=== PATIENT | female | born 1935 | race African-American/Black ===

== ENCOUNTER → 2016-06-01 | Outpatient (CLI) | payer OTHER, BC ==
[~2016-06-01] MED LIST: ACCUNEB SO1.25 MG/1 INH; ACETAMINOPHEN325 M1 PO; CEFTIN 250 MG250 MG PO; CIPRO250 M1 PO; DETROL LA4 MG PO; FERRETTS I40 MG/15 M PO; HYDROCODON-ACE1 EAC7 PO; HYDROCODON-ACE1 EAC8 PO; IBUPROFEN 200200 M1 PO; IBUPROFEN 800800 M1 PO; IRON325 PO; K-SOL20 MEQ/15 PO; KEFLEX500 MG PO; KLOR-CON M2020 MEQ PO; LASIX 20 MG TAB20 MG PO; LASIX 40 MG TAB40 M1 PO; LEVAQUIN 500 M500 M4 PO; LEVAQUIN 750 M750 MG PO; LISINOPRIL-HCT1 EAC1 PO; LISINOPRIL-HCT1 EACH PO; METHOTREXATE 22.5 M1 PO; NORCO 10-325 T1 EACH PO; POTASSIUM CHLO10 ME1 PO; POTASSIUM20 PO; PREDNISONE 10 M10 MG PO; PREDNISONE 5 MG5 M1 PO; PRILOSEC20 MG PO; PRILOSEC40 MG PO; PROAIR HFA8.5 GM INH; PROZAC20 MG PO; PROZAC40 MG PO; REGLAN 10 MG TA10 MG PO; REMICADE 1100 MG/VIA; SYNTHROID100 MCG PO; TUMS PO; TYLENOL325 MG PO; VITAMIN C500 M1 PO; VITAMIN D 5050000 I1 PO
--- NOTE | ~2016-06-01 | SLE ---
[facility] [place] [address] POLYSOMNOGRAPHY STUDY Name: RIK CASSIDY Chayito Room #: [facility]#: [id number] Admission: 06/01/16 Attend Phys: Aris Garza MD Discharge: Date of : 33 Report #: [id number] THIS REPORT FOR: //name// CC: Aris Alejandre MD DATE OF SERVICE: 06/12/2016 The patient with a history of obstructive sleep apnea, dyspnea and GERD. COMMENTS: SLEEP SUMMARY: Total sleep time 320.7 minutes. Sleep efficiency 86%. Sleep latency 18 minutes, REM latency 169 minutes. SLEEP STAGE: 1-12%, 2-87%, REM-1.5 minutes. RESPIRATORY SUMMARY: Central apnea 0, mixed apnea 0, obstructive apnea 0, hypopnea 45. Apnea-hypopnea index of 8.4 events per sleep hour. All sleep was in the supine position. Periodic limb movement with arousal index 0.9 events per sleep hour. Low oxygen saturation 86%, spending approximately 1% of recording time less than 90%. A 29% of time in snoring. IMPRESSION: 1. Obstructive sleep, apnea/hypopnea, G47.33. 2. Periodic limb movement with arousal index of 0.9 events per sleep hour. 3. No significant arrhythmia noted. SUGGESTIONS: 1. In addition to specific therapy, the patient should be cautioned regarding driving or operating dangerous machinery unless fully alert. The patient be cautioned regarding the use of respiratory depressants. 2. Oral appliance or appropriate surgery may be considered with appropriate followup. 3. A CPAP titration night is recommended. 4. If signs and symptoms not improved with therapy, further evaluation recommended. Please do not hesitate to contact me if I may be of further assistance. <ELECTRONICALLY SIGNED> By: Aris Garza MD 06/16/166 26 43 Aris Garza MD /nt
== END ==
LOC: SLEEPLAB 08:00
DX: G47.33 Obstructive sleep apnea (adult) (pediatric) (principal)

== ENCOUNTER 2016-12-19 12:49 | Inpatient (IN) | payer OTHER, BC ==
[~2016-12-19] VITALS: Ht 160 cm; Wt 85.0 kg
[2016-12-19] VITALS (31 sets, daily range): BP systolic 62–162; BP diastolic 48–120
--- NOTE | ~2016-12-19 | HC ---
[facility] [place] [address] CONSULTATION Name: RIK CASSIDY Room #: 204-P ADM IN ..#: [id number] Admission: 12/19/16 Attend Phys: Jessee Hayes MD Discharge: Date of : 33 Report #: [id number] THIS REPORT FOR: //name// CC: Jessee Hoffsaw Singh HISTORY OF PRESENT ILLNESS: An 81-year-old -[place]izen [place] female with history of rheumatoid arthritis, hypertension, dementia, having problems with weakness, dizziness, dysuria. She was admitted, noted to be septic with UTI. Elevated white count 21.5. She had acute on chronic renal insufficiency with an elevated creatinine. She was hypotensive. She was noted to have COPD exacerbation, acute respiratory failure. She has vocal cord dysfunction, was seen by ENT and held off as far as any tracheostomy. She does have a prior history of rheumatoid arthritis and has had multiple joint replacements. The patient has medical complexity with significant debilitation. We are seeing her in rehabilitation medicine consultation. PAST MEDICAL HISTORY: Rheumatoid arthritis with bilateral total hips, total knees and total ankle surgeries. She has had a cholecystectomy, previous posterior cervical fusion, right total elbow replacement, and total thyroidectomy. PAST SURGICAL HISTORY: As noted above. HABITS: No history of tobacco or alcohol abuse. ALLERGIES: ACETAMINOPHEN AND STRAWBERRY. MEDICATIONS: Please see the full medication listing. SOCIAL HISTORY: Lives in an apartment alone. No steps, was premorbidly modified independent with axillary crutches walking about 30 feet. She had a part-time caregiver 4.5 hours per day 7 days a week and had a neighbor who could assist at night with family checking in as well. REVIEW OF SYSTEMS: Did not offer any current complaints of chest pain, shortness of breath, abdominal discomfort. She has some chronic problems with chronic arthritic discomfort with her rheumatoid arthritis. Notes that she is overall weak and debilitated. PHYSICAL EXAMINATION: GENERAL: An 81-year-old -Citizen [place] female in no obvious distress. VITAL SIGNS: Last recorded temperature is 98.7, pulse 82, respirations 18, blood pressure 154/89. The patient is alert. HEENT: Appeared to be benign. NEUROLOGIC: Cranial nerves are grossly intact. Facies are symmetric. She has functional range of motion of both upper extremities with strength grade [address] [address] CONSULTATION Name: RIK CASSIDY Room #: 204-[facility]#: [id number] Admission: 12/19/16 Attend Phys: Jessee Hayes MD Discharge: Date of : 33 Report #: [id number] 4-/5. DTRs are trace to 1. She has evidence of chronic arthritic changes of her hands with chronic inflammatory changes. EXTREMITIES: Examination of her lower extremities both knee incisions are well healed. There is no focal calf swelling. I would grade the strength of both lower extremities as probably a grade 3+ to 4-/5. DTRs are decreased. There is only some trace distal lower extremity edema. Tone otherwise appeared to be intact. She was mod assist with sit to stand. Gait was mod assist 2 feet without a device. Crutches are to be brought in for physical therapy. ASSESSMENT: An 81-year-old -Citizen [place] female with the following problems: 1. Medical complexity with generalized debilitation. 2. Sepsis. 3. Acute hypercapnic respiratory failure. 4. Chronic obstructive pulmonary disease exacerbation. 5. Rheumatoid arthritis. She has had multiple prior joint replacements. 6. Acute on chronic renal failure. 7. Urinary tract infection. 8. Past history of some dementia. I am uncertain regarding the severity. She was nevertheless living in the community. 9. Vocal cord dysfunction. ENT saw her and held off on any active intervention at this time. PLAN: Therapies are continuing to work with her. She certainly may be a candidate for an acute in-hospital inpatient rehabilitation stay. Crutches are to be brought in. She appears very motivated to return back to her home setting. We will be glad to follow along with you regarding rehab therapy issues. By: 1149 [id number] Micah Lee MD /
--- NOTE | ~2016-12-19 | HC ---
[facility] [place] [address] CONSULTATION Name: RIK CASSIDY Room #: 236-P [facility] IN .R.#: [id number] Admission: 12/19/16 Attend Phys: Jessee Hayes MD Discharge: Date of : 33 Report #: [id number] THIS REPORT FOR: //name// CC: Jessee Singh DO DATE OF CONSULTATION: 12/21/2016. ATTENDING PHYSICIAN: Jessee Hayes M.D. CONSULTATION REQUESTED BY: Dr. Garza. REASON FOR CONSULTATION: Bacteremia. HISTORY OF PRESENT ILLNESS: An 81-year-old white woman who is admitted with dysuria as well as weakness and illness. The urinalysis on admission abnormal. The culture revealed gram-negative rods in urine culture, Klebsiella pneumonia. The patient is remains in the ICU today, she is feeling better. She has had a set of blood gases and it was not painful. REVIEW OF SYSTEMS: Essentially noncontributory today. PAST MEDICAL HISTORY: 1. Chronic obstructive pulmonary disease. 2. Fevers. 3. Hypokalemia. 4. History of goiter. 5. Previous urinary tract infection. 6. Electrolyte imbalance. 7. Hypothyroidism. 8. Past medical history positive also for bilateral total hip replacement, and cholecystectomy. section, right total elbow replacement, bilateral cataract surgery. Full mouth dental extractions. Gastroesophageal reflux. Thyroidectomy. DRUG ALLERGIES: TYLENOL. MEDICATIONS: She is currently on treatment with Rocephin 1 g IV daily, fluoxetine, ferrous sulfate, levothyroxine, subcutaneous heparin, epinephrine inhalation as needed, Atrovent and albuterol inhalation treatments, p.r.n. glucose, glucagon, methylprednisolone 80 mg IV every 8 hours, Atrovent and albuterol inhalation treatments if needed, p.r.n. hydrocodone, p.r.n. ondansetron. SOCIAL HISTORY: See H and P old records. [facility] [address] [place] [address] CONSULTATION Name: RIK CASSIDY Room #: 236-P [facility] IN [facility].#: [id number] Admission: 12/19/16 Attend Phys: Jessee Hayes MD Discharge: Date of : 33 Report #: [id number] FAMILY HISTORY: See H and P old records. REVIEW OF SYSTEMS: As above and essentially noncontributory. PHYSICAL EXAMINATION: GENERAL: Elderly woman, not toxic looking, no distress. VITAL SIGNS: On admission, temperature 98.1 and she had a temperature elevation of 99.9 on 12/20/2016 at 8:00 p.m., pulse 74, respirations 17, pressure 127/77. HEENMT: Head normocephalic, atraumatic. Pupils reactive. Mouth edentulous. Conjunctivae pale. NECK: Supple, no thyromegaly. BREASTS: Deferred. LUNGS: Decreased breath sounds, few rhonchi. HEART: S1, S2. No gallop or murmur. ABDOMEN: Surgical scar, soft, no masses or megaly. PELVIC AND RECTAL: Deferred. EXTREMITIES: No clubbing, cyanosis. NEUROLOGIC: Grossly within normal limits. LABORATORY DATA: Sodium 140, potassium 3.7, BUN 25, creatinine 1.5. On admission, creatinine was 2.1, albumin 3.1 g/dL. NT-proBNP 953, white blood cell count 22,900, hemoglobin 10.2 g/dL and platelets 179,000. The urinalysis on admission revealed 1+ protein, 2+ blood, positive nitrite. The microscopic exam revealed pyuria, microscopic hematuria and bacteriuria. ABGs today revealed pH 7.29, pCO2 of 41, pO2 132, bicarbonate 19.6, lactate 2.38, her lactate has been coming down but here of lately has increased some again. MICROBIOLOGY DATA: The urine culture revealed Klebsiella pneumonia, both of them sensitive to cefazolin and ceftriaxone and single blood culture was positive with gram-negative rods. The identification and sensitivity of those still pending. RADIOLOGY EVALUATION: A chest x-ray obtained yesterday revealed ectasia of the aorta interstitial infiltrates have increased with more focal infiltrate on the left lower area compatible with either atelectasis or pneumonia, this is the official report. Repeat chest x-ray today remains essentially unchanged with left basilar pulmonary infiltrate, some air bronchogram and significant dilatation of the thoracic aorta. ASSESSMENT: 1. Acute pyelonephritis with bacteremia due to Klebsiella pneumonia -- type. 2. Left lower lung pulmonary infiltrate, question pneumonia. 3. Persistent and metabolic and mild lactic acidosis. 4. Mild respiratory failure. [address] [address] CONSULTATION Name: RIK CASSIDY Chayito Room #: 236-P [facility] IN M.R.#: [id number] Admission: 12/19/16 Attend Phys: Jessee Hayes MD Discharge: Date of : 33 Report #: [id number] 5. Chronic obstructive pulmonary disease. 6. Rheumatoid arthritis on Remicade -- immunosuppressed host. 7. Acute kidney injury, improving. 8. Hypertension. 9. Dementia. SUGGESTIONS: Currently, even though laboratory parameters indicate the patient has some mild metabolic and lactic acidosis. I believe she is clinically progressing quite nicely and stable continuation of treatment with Rocephin 1 gram IV daily. If clinical course fails to improve, will possibly broaden antibiotic spectrum coverage with Zosyn 3.375 grams IV every [address] Hayes and Dr. Garza, thank you very much for requesting my suggestions in the care of your patient. <ELECTRONICALLY SIGNED> By: Bhargav Sanford MD 12/21/16 1504 1149 1300 Bhargav Sanford MD /nt
--- NOTE | ~2016-12-19 | HC ---
[facility] [place] [address] CONSULTATION Name: RIK CASSIDY Room #: 204-P ADM IN .R.#: [id number] Admission: 12/19/16 Attend Phys: Jessee Hayes MD Discharge: Date of : 33 Report #: [id number] THIS REPORT FOR: //name// CC: Jessee Singh REFERRAL PHYSICIAN: Dr. Hayes. REASON FOR REFERRAL: Acute respiratory failure. HISTORY OF PRESENT ILLNESS: The patient is an 81-year-old -[place] female who presents to the emergency room with complaints of dizziness, weakness and dyspnea. Symptoms started sometime last evening. She was found to be dyspneic when she was admitted. A pulmonary consultation was requested. The patient has a history of thyroidectomy in the past. She was found to have large multinodular goiter. The patient is also known to have hoarseness in the past. 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 This was felt to be related to the large multinodular goiter. According to the family following thyroidectomy, she continued to have episodic hoarseness and dyspnea. The patient also has a long history of rheumatoid arthritis. She is followed by Dr. Cody. The patient was in her usual state of health until sometime yesterday and this morning, she was found to be dyspneic with complaints of dizziness. She was admitted for possible urinary tract infection. When she was found to be dyspneic, a pulmonary consultation was requested. At the time of evaluation, the patient is felt to have stridor with what appears to be upper airway breath sounds. She appeared to tachypneic. She is currently on BiPAP. Appears to be resting in bed. Otherwise, no recent febrile illness, chest pain or productive cough. Portable chest x-ray shows small lung volumes, otherwise clear without any obvious infiltrates. PAST MEDICAL HISTORY: As mentioned above including large multinodular goiter, status post thyroidectomy; history of bilateral vocal cord paresis; COPD, severity unknown; ; long history of rheumatoid arthritis; gastroesophageal reflux disease. PAST SURGICAL HISTORY: As mentioned above including as mentioned thyroid [facility] [address] [place] [address] CONSULTATION Name: KHANHRIK Room #: 204-P [facility] IN [facility]#: [id number] Admission: 12/19/16 Attend Phys: Jessee Hayes MD Discharge: Date of : 33 Report #: [id number] surgery, bilateral hip surgery, elbow and ankle surgeries. She had a prior bone marrow biopsy for evaluation of pancytopenia. Cholecystectomy. Posterior cervical fusion, right total elbow replacement, bilateral cataract surgery, prior LASIK surgery, total tooth extraction. ALLERGIES: ACETAMINOPHEN, reactions unspecified. She is also allergic to STRAWBERRY. MEDICATIONS FROM HOME: Reviewed. This include Prilosec, lisinopril, Diovan/hydrochlorothiazide, Prozac, K-Dur, Detrol, Namenda, iron sulfate, Reglan, vitamin D supplements, and Lasix. FAMILY HISTORY: Unknown as the patient is adopted. SOCIAL HISTORY: No prior history of tobacco or alcohol use. The patient lives at a senior citizen complex. She lives independently. She has family who lives in town. REVIEW OF SYSTEMS: Limited as patient is on BiPAP. It is otherwise, as mentioned above. PHYSICAL EXAMINATION: GENERAL: She is awake, less distressed while on BiPAP. VITAL SIGNS: Temperature is 99.7 degrees Fahrenheit, pulse is 118, blood pressure is 113/67 mmHg, saturation 98%, and respiratory rate is 20. HEENT: Normocephalic, atraumatic. NECK: Supple, without lymphadenopathy or thyromegaly. CHEST: Breath sounds are decreased bilaterally. No obvious wheezes or rales. CARDIOVASCULAR: No obvious murmurs or gallop. Pulses are 2+/4+ bilaterally. BREASTS: Deferred. ABDOMEN: Soft, nontender. No organomegaly or masses felt. GENITOURINARY AND RECTAL: Deferred. EXTREMITIES: No cyanosis, clubbing or edema. LABORATORY AND DIAGNOSTIC DATA: Chest x-ray as mentioned above is clear. Arterial blood gas revealed pH 7.05, pCO2 of 76, pO2 of 117 on 6 liters of O2. WBC is 21,500 with mild bandemia. Creatinine is 2.1, sodium 140, potassium 3.0, chloride 102, CO2 is 26, BUN is 21. IMPRESSION: 1. Acute hypercapnic hypoxic respiratory failure in this 81-year-old -[place] female with past history of bilateral vocal cord paresis. This was initially felt to be related to large multinodular goiter. She has since undergone thyroidectomy. 2. Acute respiratory distress is likely related to underlying vocal cord pathology. [address] [address] CONSULTATION Name: RIK CASSIDY Room #: 204-P [facility] IN [place].R.#: [id number] Admission: 12/19/16 Attend Phys: Jessee Hayes MD Discharge: Date of : 33 Report #: [id number] 3. History of chronic obstructive pulmonary disease, severity unknown, this may be contributing, but I do not believe this is a primary process. 4. Urinary tract infection. 5. Sepsis. 6. Long history of rheumatoid arthritis. She has been on Remicade. It is possible the patient may have vocal cord involvement due to rheumatoid arthritis. 7. Acute kidney injury/chronic kidney disease. 8. Hypertension. The patient had been hypotensive since admission. 9. Hypothyroidism. 10. Multinodular goiter, status post thyroidectomy this past year. 11. Dementia. RECOMMENDATIONS: Continue noninvasive positive pressure ventilation. We will follow up ABG. Bronchodilators along with corticosteroids. We will consult ENT. If she continues to have deterioration in oxygenation, the patient may need to be intubated. Thank you for this consultation. <ELECTRONICALLY SIGNED> By: Sergio Zavaleta MD 12/24/16 1706 1805 09 Sergio Zavaleta MD /nt
--- NOTE | ~2016-12-19 | EKG ---
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: [id number] : 1935 Requested By: Juan Sarabia Order Number: [id number] MD: Noé Freeman Measurements Intervals [place] Rate: 97 P: 27 [place]: 169 QRS: -23 QRSD: 89 T: -3 QT: 365 QTc: 464 Interpretive Statements Sinus rhythm Abnormal R-wave progression, early transition Left ventricular hypertrophy Nonspecific ST and T wave abnormality Compared to ECG 12/20/2014 09:24:39 Nonspecific change in the ST and T-wave segments Electronically Signed On 12-20-2016 8:07:37 CDT by Noé Freeman [email or web address] <ELECTRONICALLY SIGNED> By: Noé Freeman MD, [facility] 12/20/16 0807 1256 1256 Noé Freeman MD, [facility] /EPI
[2016-12-19] MEDS ORDERED: NAMENDA XR28 MG PO (13:02)
[2016-12-19 13:18] LABS: HEMATOCRIT 37.5 % (37.0-47.0); HEMOGLOBIN 12.2 gm/dL (12.0-15.0); MCH 30.5 pg (26.0-34.0); MCHC 32.5 g/dL (28.0-37.0); MCV 93.8 fL (80.0-100.0); PLATELET COUNT 197 thou/uL (150-400); RDW 15.3 % (10.5-14.5); WBC 21.5 thou/uL (4.0-11.0)
[2016-12-19 13:20] LABS: MANUAL DIFF YES
[2016-12-19 13:24] LABS: ANION GAP 12 mmol/L (7-16); BUN 21 mg/dL (7-18); CALCIUM 9.4 mg/dL (8.5-10.1); CHLORIDE 102 mmol/L (98-107); CO2 26 mmol/L (21-32); CREATININE 2.1 mg/dL (0.6-1.0); GLUCOSE 124 mg/dL (74-106); SODIUM 140 mmol/L (136-145)
[2016-12-19 13:35] LABS: TOTAL CELL COUNT 100
[2016-12-19 13:35] LABS: URINE BILIRUBIN NEGATIVE (Negative); URINE BLOOD 2+ (Negative); URINE COLOR YELLOW; URINE GLUCOSE-RANDOM* NEGATIVE (Negative); URINE KETONES NEGATIVE (Negative); URINE LEUKOCYTES-REFLEX 3+ (Negative); URINE PROTEIN (DIPSTICK) 1+ (Negative); URINE SPECIFIC GRAVITY 1.015 (1.003-1.035); URINE UROBILINOGEN 0.2 E.U./dl (0.2-1.0)
[2016-12-19 13:36] LABS: PLATELET ESTIMATE NORMAL
[2016-12-19 13:37] LABS: ALBUMIN 3.1 g/dL (3.4-5.0); ALKALINE PHOSPHATASE 64 U/L (46-116); NT-PRO BRAIN NAT PEPTIDE 953 pg/mL (<300); SGOT 16 U/L (15-37); SGPT 12 U/L (30-65); TOTAL BILIRUBIN 0.4 mg/dL (<0.1-1.0); TOTAL PROTEIN 7.4 g/dL (6.4-8.2); TROPONIN-I < 0.04 ng/mL (<0.04-0.07)
[2016-12-19 13:45] LABS: CASTS None Seen /LPF (None Seen); CRYSTALS None Seen /LPF (None Seen); SQUAMOUS 0-3 Few /LPF (0-3); URINE RBC 3-10 Few /HPF (0-2); URINE WBC-REFLEX >25 Many /HPF (0-5)
[2016-12-19 16:10] LABS: ABG SAMPLE TYPE ARTERIAL; BE(vivo) -10.6 mmol/L (-2 to +3); HCO3 20.9 mmol/L (22.0-26.0); LACTATE 3.07 mmol/L (0.5-2.0); O2(CT) 17.6 mL/dL (15.0-23.0); O2Hb 94.6 % (92.0-98.0); PO2 117.9 mmHg (80.0-100.0); sO2 96.2 % (92.0-98.0); tCO2 23.3 mmol/L (24.0-30.0)
[2016-12-19 16:11] LABS: PCO2 76.7 mmHg (35.0-45.0); STICK SITE L.RADIAL; pH 7.054 (7.360-7.450)
[2016-12-19 18:15] LABS: ABG SAMPLE TYPE ARTERIAL; BE(vivo) -7.1 mmol/L (-2 to +3); HCO3 17.3 mmol/L (22.0-26.0); LACTATE 1.78 mmol/L (0.5-2.0); O2(CT) 16.2 mL/dL (15.0-23.0); O2Hb 97.7 % (92.0-98.0); PCO2 31.7 mmHg (35.0-45.0); PO2 148.6 mmHg (80.0-100.0); STICK SITE L.RADIAL; pH 7.356 (7.360-7.450); sO2 98.9 % (92.0-98.0); tCO2 18.3 mmol/L (24.0-30.0)
[2016-12-19 20:12] LABS: ABG SAMPLE TYPE ARTERIAL; BE(vivo) -10.4 mmol/L (-2 to +3); HCO3 20.2 mmol/L (22.0-26.0); LACTATE 2.69 mmol/L (0.5-2.0); O2(CT) 17.9 mL/dL (15.0-23.0); O2Hb 97.9 % (92.0-98.0); PO2 355.1 mmHg (80.0-100.0); sO2 99.6 % (92.0-98.0); tCO2 22.4 mmol/L (24.0-30.0)
[2016-12-19 20:13] LABS: PCO2 69.7 mmHg (35.0-45.0); STICK SITE LRA; pH 7.081 (7.360-7.450)
[2016-12-19 20:14] LABS: ABG COMMENT BIPAP; Pressure Support 16 cm H20
[2016-12-20] VITALS (95 sets, daily range): BP systolic 74–132; BP diastolic 50–97
[2016-12-20 05:19] LABS: ABG SAMPLE TYPE ARTERIAL; BE(vivo) -5.9 mmol/L (-2 to +3); HCO3 19.4 mmol/L (22.0-26.0); LACTATE 1.19 mmol/L (0.5-2.0); O2(CT) 15.7 mL/dL (15.0-23.0); O2Hb 97.3 % (92.0-98.0); PCO2 37.7 mmHg (35.0-45.0); Pressure Support 16 cm H20; STICK SITE LRA; sO2 98.5 % (92.0-98.0); tCO2 20.6 mmol/L (24.0-30.0)
[2016-12-20 05:20] LABS: ABG COMMENT BIPAP16/8 10 40%
[2016-12-20 05:56] LABS: HEMATOCRIT 32.7 % (37.0-47.0); HEMOGLOBIN 10.5 gm/dL (12.0-15.0); MCH 30.7 pg (26.0-34.0); MCHC 32.2 g/dL (28.0-37.0); MCV 95.3 fL (80.0-100.0); RBC 3.43 mil/uL (4.20-5.00)
[2016-12-20 06:10] LABS: CALCIUM 8.4 mg/dL (8.5-10.1); CREATININE 1.8 mg/dL (0.6-1.0); POTASSIUM 3.6 mmol/L (3.5-5.1)
[2016-12-21] VITALS (21 sets, daily range): BP systolic 103–134; BP diastolic 72–88
[2016-12-21 04:23] LABS: ABG SAMPLE TYPE ARTERIAL; BE(vivo) -5.9 mmol/L (-2 to +3); HCO3 20.2 mmol/L (22.0-26.0); LACTATE 1.89 mmol/L (0.5-2.0); O2(CT) 15.6 mL/dL (15.0-23.0); O2Hb 97.5 % (92.0-98.0); PO2 137.4 mmHg (80.0-100.0); sO2 98.5 % (92.0-98.0); tCO2 21.4 mmol/L (24.0-30.0)
[2016-12-21 04:24] LABS: STICK SITE L.RADIAL; pH 7.299 (7.360-7.450)
[2016-12-21 06:25] LABS: HEMATOCRIT 31.1 % (37.0-47.0); HEMOGLOBIN 10.2 gm/dL (12.0-15.0); MCH 31.1 pg (26.0-34.0); MCHC 32.9 g/dL (28.0-37.0); MCV 94.6 fL (80.0-100.0); RBC 3.29 mil/uL (4.20-5.00); RDW 15.5 % (10.5-14.5); WBC 22.9 thou/uL (4.0-11.0)
[2016-12-21 06:35] LABS: CALCIUM 8.6 mg/dL (8.5-10.1); CREATININE 1.5 mg/dL (0.6-1.0); POTASSIUM 3.7 mmol/L (3.5-5.1)
[2016-12-21 11:38] LABS: ABG SAMPLE TYPE ARTERIAL; BE(vivo) -6.5 mmol/L (-2 to +3); HCO3 19.6 mmol/L (22.0-26.0); LACTATE 2.38 mmol/L (0.5-2.0); O2(CT) 15.5 mL/dL (15.0-23.0); O2Hb 97.1 % (92.0-98.0); PCO2 41.3 mmHg (35.0-45.0); PO2 132.9 mmHg (80.0-100.0); STICK SITE R.BRACHIAL; pH 7.295 (7.360-7.450); sO2 98.4 % (92.0-98.0); tCO2 20.9 mmol/L (24.0-30.0)
[2016-12-22 03:31] VITALS: BP 132/76
[2016-12-22 03:46] LABS: HEMATOCRIT 31.2 % (37.0-47.0); HEMOGLOBIN 10.2 gm/dL (12.0-15.0); MCH 30.8 pg (26.0-34.0); MCHC 32.6 g/dL (28.0-37.0); MCV 94.6 fL (80.0-100.0); RBC 3.3 mil/uL (4.20-5.00); RDW 15.5 % (10.5-14.5); WBC 16.5 thou/uL (4.0-11.0)
[2016-12-22 03:55] LABS: CALCIUM 8.6 mg/dL (8.5-10.1); CREATININE 1.5 mg/dL (0.6-1.0); POTASSIUM 3.7 mmol/L (3.5-5.1)
[2016-12-22 05:57] LABS: ABG SAMPLE TYPE ARTERIAL; BE(vivo) -3.8 mmol/L (-2 to +3); HCO3 22.6 mmol/L (22.0-26.0); LACTATE 1.74 mmol/L (0.5-2.0); O2(CT) 14.8 mL/dL (15.0-23.0); O2Hb 97.5 % (92.0-98.0); PCO2 47.4 mmHg (35.0-45.0); PO2 133.2 mmHg (80.0-100.0); sO2 98.4 % (92.0-98.0); tCO2 24.1 mmol/L (24.0-30.0)
[2016-12-22 05:58] LABS: STICK SITE R.BRACHIAL; pH 7.297 (7.360-7.450)
[2016-12-22 07:35] VITALS: BP 120/78
[2016-12-22 11:35] VITALS: BP 106/63
[2016-12-22 15:50] VITALS: BP 113/71
[2016-12-22 19:46] VITALS: BP 123/73
[2016-12-23 00:09] VITALS: BP 124/73
[2016-12-23 03:13] LABS: HEMATOCRIT 30.3 % (37.0-47.0); HEMOGLOBIN 9.8 gm/dL (12.0-15.0); MCH 30.7 pg (26.0-34.0); MCHC 32.4 g/dL (28.0-37.0); MCV 94.6 fL (80.0-100.0); RBC 3.2 mil/uL (4.20-5.00); RDW 15.2 % (10.5-14.5); WBC 11.6 thou/uL (4.0-11.0)
[2016-12-23 03:34] LABS: CALCIUM 8.8 mg/dL (8.5-10.1); CREATININE 1.5 mg/dL (0.6-1.0); POTASSIUM 3.6 mmol/L (3.5-5.1)
[2016-12-23 04:05] VITALS: BP 129/73
[2016-12-23 07:07] LABS: ABG SAMPLE TYPE ARTERIAL; BE(vivo) -4.2 mmol/L (-2 to +3); HCO3 22.1 mmol/L (22.0-26.0); LACTATE 1.82 mmol/L (0.5-2.0); O2(CT) 13.8 mL/dL (15.0-23.0); O2Hb 91.5 % (92.0-98.0); PCO2 45.6 mmHg (35.0-45.0); PO2 66.3 mmHg (80.0-100.0); STICK SITE R.BRACHIAL; pH 7.303 (7.360-7.450); sO2 91.2 % (92.0-98.0); tCO2 23.5 mmol/L (24.0-30.0)
[2016-12-23 07:25] VITALS: BP 145/87
[2016-12-23 11:30] VITALS: BP 146/82
[2016-12-23 15:30] VITALS: BP 144/76
[2016-12-23 19:12] VITALS: BP 148/95
[2016-12-24 03:51] VITALS: BP 147/95
[2016-12-24 03:57] LABS: CREATININE 1.3 mg/dL (0.6-1.0); POTASSIUM 3.5 mmol/L (3.5-5.1)
[2016-12-24 04:22] LABS: HEMATOCRIT 31.2 % (37.0-47.0); HEMOGLOBIN 10.1 gm/dL (12.0-15.0); MCH 30.9 pg (26.0-34.0); MCHC 32.5 g/dL (28.0-37.0); MCV 94.8 fL (80.0-100.0); PLATELET COUNT 155 thou/uL (150-400); RBC 3.29 mil/uL (4.20-5.00); WBC 8.7 thou/uL (4.0-11.0)
[2016-12-24 04:25] LABS: MANUAL DIFF YES
[2016-12-24 07:15] VITALS: BP 154/89
[2016-12-24 08:02] LABS: METAMYELOCYTES 3 %; NUCLEATED RBCS 1 /100WBC; TOTAL CELL COUNT 100
[2016-12-24 08:03] LABS: ABSOLUTE NEUTROPHILS 7.6 thou/uL (1.4-8.2); ANISOCYTOSIS 1+
[2016-12-24 11:10] VITALS: BP 129/69
[2016-12-24 15:20] VITALS: BP 149/92
== END 2016-12-24 17:37 | DRG 871 ==
LOC: ER 12:49 → EROBS 14:08 → ICU 14:08 → 4W 15:21 → ICU 16:49 → 2N 12-21 15:55
PROVIDERS: Family Medicine; Hospitalist; Internal Medicine Pulmonary Disease; Physician Assistant
PROC: 5A09457 Assistance with Respiratory Ventilation, 24-96 Consecutive Hours, Continuous Positive Airway Pressure (ICD-10-PCS; principal; 2016-12-19)
DX: A41.9 Sepsis, unspecified organism (principal); J96.01 Acute respiratory failure with hypoxia; J96.02 Acute respiratory failure with hypercapnia; N12 Tubulo-interstitial nephritis, not specified as acute or chronic; J44.1 Chronic obstructive pulmonary disease with (acute) exacerbation; N17.9 Acute kidney failure, unspecified; M06.9 Rheumatoid arthritis, unspecified; E89.0 Postprocedural hypothyroidism; F32.9 Major depressive disorder, single episode, unspecified; K21.9 Gastro-esophageal reflux disease without esophagitis; Z96.621 Presence of right artificial elbow joint; Z96.653 Presence of artificial knee joint, bilateral; Z96.643 Presence of artificial hip joint, bilateral; N18.9 Chronic kidney disease, unspecified; J38.02 Paralysis of vocal cords and larynx, bilateral; F03.90 Unspecified dementia, unspecified severity, without behavioral disturbance, psychotic disturbance, mood disturbance, and anxiety; D64.9 Anemia, unspecified; B96.1 Klebsiella pneumoniae [K. pneumoniae] as the cause of diseases classified elsewhere; Z90.49 Acquired absence of other specified parts of digestive tract; Z98.1 Arthrodesis status; Z98.42 Cataract extraction status, left eye; Z98.41 Cataract extraction status, right eye; Z79.899 Other long term (current) drug therapy; Z88.8 Allergy status to other drugs, medicaments and biological substances; Z91.018 Allergy to other foods; R65.20 Severe sepsis without septic shock
CPT/HCPCS: 10078; 10081

== ENCOUNTER 2016-12-24 14:10 | Inpatient (IN) | payer OTHER, BC ==
[~2016-12-24] VITALS: Ht 160 cm; Wt 81.6 kg
--- NOTE | ~2016-12-24 | H ---
[facility] [place] [address] HISTORY AND PHYSICAL Name: RIK CASSIDY Room #: 505-P ADM IN M.R.#: [id number] Admission: 12/24/16 Attend Phys: Micah Lee MD Discharge: Date of : 33 Report #: [id number] THIS REPORT FOR: //name// CC: Micah Camcarrie Annaker DATE OF SERVICE: 12/24/2016 PROGRESS NOTE/OVERALL PLAN OF CARE The patient was seen back today in followup. She was in no distress. Last recorded temperature 98.9, pulse 78, respirations 18, blood pressure 146/89. The patient is alert. She appears to have some decreased insight into her deficits. I reviewed with her the goals that would need to be achieved for her to hopefully return back to the home setting. Functionally, she is transferring with max assist, bed to wheelchair is mod assist. Once up, she did take six steps with bilateral platform attachment front-wheeled walker with min assist. In occupational therapy, lower body dressing has been dependent. Speech therapy does show moderate comprehensive deficits. ASSESSMENT: 1. Medical complexity with generalized debilitation. 2. Sepsis. 3. Acute hypercapnic respiratory failure. 4. Chronic obstructive pulmonary disease exacerbation. 5. Rheumatoid arthritis. She has had multiple prior joint replacements. 6. Acute on chronic renal failure. 7. Urinary tract infection. 8. Apparent past history of some dementia. PLAN: The overall plan of care is based on the preadmission screen, post-admission physician evaluation and information garnered from therapy assessments. 1. Estimated length of stay is probably at least 10 days to 2 weeks. 2. Medical prognosis is reasonably good. 3. Anticipated interventions includes the interdisciplinary acute inpatient rehabilitation program with PT and OT and speech working with her rehab nursing assisting regarding medication management, skin care prophylaxis, bowel and bladder issues and nursing education. We will have the interdisciplinary team working with her as well as bi consultant physicians. 4. Anticipated functional outcomes would be for her to become independent with basic transfers and walking hopefully with those axillary crutches. 5. Discharge destination would be back home where she does live with the part-time caregiver. 6. Expected therapy by discipline includes PT, OT and speech 1 [place] [address] HISTORY AND PHYSICAL Name: KHANHRIK J Room #: 505-P [facility] IN [facility].#: [id number] Admission: 12/24/16 Attend Phys: Micah Lee MD Discharge: Date of : 33 Report #: [id number] each five days a week throughout the duration of the acute inpatient rehabilitation stay. By: 1023 [id number] Micah Lee MD /
--- NOTE | ~2016-12-24 | HC ---
[facility] [place] [address] CONSULTATION Name: RIK CASSIDY Room #: 505-P [facility] IN .R.#: [id number] Admission: 12/24/16 Attend Phys: Micah Lee MD Discharge: Date of : 33 Report #: [id number] THIS REPORT FOR: //name// CC: Micah Camcarrie Singh DATE OF SERVICE: 12/28/2016 NEUROBEHAVIORAL STATUS EXAM ATTENDING PHYSICIAN: Micah Lee M.D. WEBSITE DEVELOPER: Guzman Garza, PhD CLINICAL PRESENTATION: The patient is an 81-year-old -[place]ib[place] female with a history of rheumatoid arthritis and hypertension. She was admitted for acute hospitalization with problems that include weakness, dizziness and dysuria. The patient was noted to be septic and had a urinary tract infection. Her diagnoses on admission include medical complexity with generalized debilitation, sepsis, acute hypercapnic respiratory failure, chronic obstructive pulmonary disease exacerbation, rheumatoid arthritis with multiple joint replacements, acute on chronic renal failure, urinary tract infection, past history of dementia, vocal cord dysfunction. A complete description of her medical condition, history and medication can be found in her medical record. Neuropsychological consultation was requested to provide assistance in the assessment of cognitive and emotional status and to provide recommendations and services. Prior to this most recent admission, she was living independently in her own home. She reports having assistance in functioning that is provided by her family and caregiver. Her daughter is reported to manage medication for her and the caregiver provides nutritional support. The patient indicates that she does continue to drive and manage her own medication. She is a high school graduate. 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 TECHNIQUES UTILIZED: Clinical interview, review of medical records, staff consultation and behavioral observation, mini mental status exam 2 standard version and clock drawing. EXAMINATION FINDINGS: The patient was alert and cooperative with the assessment. She accurately described events surrounding her admission. There is no evidence of aphasia. Her thoughts are logical and goal oriented. There is no evidence of thought disorder. She does not report auditory or visual hallucinations. She reports her symptoms to include difficulty with sleep and appetite. Frustration with swallowing deficits is reported. She does not report difficulty with cognitive function. [facility] [address] [place] [address] CONSULTATION Name: RIK CASSIDY Room #: 505-P [facility] IN ..#: [id number] Admission: 12/24/16 Attend Phys: Micah Lee MD Discharge: Date of : 33 Report #: [id number] Her performance on the MMSE 2 brief version was extremely low with a raw score of 12 of 16 with a T score of 30 and percentile rank of 2 which is in the borderline range. Performance on the MMSE 2 standard version was extremely low with a raw score 21 of 30, T score 28 and percentile rank of 1. The patient is 3/3 for initial registration, 4/5 for orientation to time and 5/[address]. She was 0/3 for immediate recall of 3 items after a brief time delay and distraction. Her performance on the MMSE 2 standard version reveals extremely low performance with deficits in concnetration that is reflected in problems with serial sevens. Her naming, repetition and ability to follow written command are within normal limits. The patient was able to write a sentence. She was unable to copy a simple geometric design. Severe visual spatial disorientation is noted. The patient also had difficulty with clock drawing in regard to spatial organization. She is showing impairment with sustained attention and concentration, immediate recall and visual spatial organization. Deficits in executive functioning are suggested. DIAGNOSTIC IMPRESSION: Major neurocognitive disorder (dementia), unspecified, without behavior disorder (poor insight) -- likely in the mild to moderate range. RECOMMENDATIONS: The patient will continue to require assistance in the management of finances and nutrition. She will also benefit from help with managing medication. She has decreased insight into cognitive deficits which places her at an increased safety risk. Additionally, the patient should discontinue driving. Severe deficits in visual spatial organization along with attention and concentration place her at a high safety risk for which she has decreased insight. She has very good family support in return to her home, from a cognitive perspective is likely to be satisfactory; however, increased supervision to maintain safety will be necessary. Thank you very much for allowing me to provide the consultation on this patient. <ELECTRONICALLY SIGNED> By: Guzman Garza, PhD 01/04/17 1357 [id number] Guzman Garza, PhD /nt
--- NOTE | ~2016-12-24 | H ---
[facility] [place] [address] HISTORY AND PHYSICAL Name: RIK CASSIDY Room #: 505-P [facility] IN .R.#: [id number] Admission: 12/24/16 Attend Phys: Micah Lee MD Discharge: Date of : 33 Report #: [id number] THIS REPORT FOR: //name// CC: Micah Camore Singh DATE OF SERVICE: 12/24/2016 HISTORY OF PRESENT ILLNESS: The patient is an 81-year-old -Bel[place]ian female with a history of rheumatoid arthritis, hypertension, admitted with problems of weakness, dizziness and dysuria. She was noted to be septic and had urinary tract infection. She had an elevated white count 21.5. She was noted to have pcdnz-fo-ipswzgv renal insufficiency with an elevated creatinine. She was hypotensive. She was noted to have COPD exacerbation and acute respiratory failure. She has vocal cord dysfunction and was seen by ENT and they held off as far as any tracheostomy. She does have a prior history of rheumatoid arthritis and has had multiple joint replacements. She has medical complexity with generalized debilitation. She was admitted now for acute in-hospital inpatient rehabilitation. PAST MEDICAL HISTORY: Rheumatoid arthritis with bilateral total hips, total knees and total ankle surgeries. She has had a cholecystectomy, previous posterior cervical fusion, right total elbow replacement and total thyroidectomy. PAST SURGICAL HISTORY: As noted above. HABITS: No history of tobacco or alcohol abuse. ALLERGIES: ACETAMINOPHEN AND STRAWBERRY. MEDICATIONS: Please see the full medication listing. Each of these was individually reconciled and the list includes her gyjn-mok-qkgybqq's, supplements and vitamin, etc. SOCIAL HISTORY: Lives in an apartment alone, no steps, was premorbidly modified independent with axillary crutches, walking about 30 feet. She had a part-time caregiver 4-1/2 hours per day 7 days per week and a neighbor who could assist at night with family checking in as well. REVIEW OF SYSTEMS: Did not offer any current complaints of chest pain, shortness of breath, abdominal discomfort. She has had some chronic problems with chronic arthritic discomfort with her rheumatoid arthritis. No current focal extremity pain complaints. Notes that she is overall debilitated. PHYSICAL EXAMINATION: [address] [address] HISTORY AND PHYSICAL Name: RIK CASSIDY Room #: 505-P [facility] IN [facility]#: [id number] Admission: 12/24/16 Attend Phys: Micah Lee MD Discharge: Date of : 33 Report #: [id number] GENERAL: An 81-year-old -Bel[place]ian female, in no obvious distress. VITAL SIGNS: Last recorded temperature 99.3, pulse 75, respirations 20, blood pressure 138/84. The patient is alert, pleasant. HEENT: Appeared to be benign. Cranial nerves are grossly intact. Facies are symmetric. CHEST: Sounded clear to auscultation. CARDIOVASCULAR: Sounded regular rate and rhythm. ABDOMEN: Significant obesity, bowel sounds positive, nontender. GENITOURINARY AND RECTAL: Deferred. EXTREMITIES: Upper extremities, she has chronic arthritic changes of her hands. She has functional range of motion. Strength is grade 4-/5. DTRs are trace to 1. Lower extremities, both knee incisions are well healed. There is no focal calf swelling. Strength of the lower extremities is grade 3+ to 4-/5. DTRs are decreased. Trace distal lower extremity edema. She is mod assist with sit to stand and was ambulating a short distance without a device. ASSESSMENT: An 81-year-old -[place]ian female with the following problem list: 1. Medical complexity with generalized debilitation. 2. Sepsis. 3. Acute hypercapnic respiratory failure. 4. Chronic obstructive pulmonary disease exacerbation. 5. Rheumatoid arthritis. She has had multiple prior joint replacements. 6. Acute on chronic renal failure. 7. Urinary tract infection. 8. Apparent past history of some dementia. I am uncertain regarding the severity. She was nevertheless living in the community. 9. Vocal cord dysfunction. ENT saw her and held off on any active intervention at this time. PLAN: The patient is admitted for acute in-hospital inpatient rehabilitation. From a postadmission physician evaluation perspective, there are no relevant changes since the preadmission screening. Please see the above review of prior and current medical and functional conditions and comorbidities. Please see the patient's previous and current functional status. As far as risk and complications, she does have the multiple medical comorbidities as noted above. Initial plan of care involves the interdisciplinary acute inpatient rehabilitation program with the goal of maximizing the patient's functional independence, so that she can hopefully return back to her prior living situation. Measurable functional goals would be for her to become modified independent with transfers, mobility and ADLs, so that she can return back to the home setting. Prognosis is reasonably good with estimated length of stay probably at least the next 10 days to 2 weeks and likely longer if needed. Potential barriers would include her multiple medical comorbidities and decreased functional status. [facility] [address] [place] [address] HISTORY AND PHYSICAL Name: RIK CASSIDY Room #: 505-P ADM IN M.R.#: [id number] Admission: 12/24/16 Attend Phys: Micah Lee MD Discharge: Date of : 33 Report #: [id number] The patient has an appropriate rehab diagnosis for an acute inpatient rehabilitation stay. She meets medical necessity criteria and we will have the consultant rn physicians continue to follow along with her while she is on the rehab baker. She does have the tolerance for an acute rehab therapy level and has appropriate discharge goals back to the home setting. By: [id number] 1111 Micah Lee MD /
[~2016-12-24 14:10] MED LIST changes: +NAMENDA XR28 MG PO
[2016-12-24 17:55] VITALS: BP 141/84
[2016-12-24 22:20] VITALS: BP 199/76
[2016-12-25 04:48] LABS: ABSOLUTE NEUTROPHILS 7.4 thou/uL (1.4-8.2); BASOPHILS 0.2 % (0.0-2.0); EOSINOPHILS 0.2 % (0.0-3.0); HEMATOCRIT 33.1 % (37.0-47.0); HEMOGLOBIN 10.7 gm/dL (12.0-15.0); LYMPHOCYTES 19.4 % (24.0-44.0); MCH 30.7 pg (26.0-34.0); MCHC 32.4 g/dL (28.0-37.0); PLATELET COUNT 160 thou/uL (150-400); POLYS 71.2 % (36.0-66.0); RBC 3.48 mil/uL (4.20-5.00); RDW 15.3 % (10.5-14.5); WBC 10.4 thou/uL (4.0-11.0)
[2016-12-25 04:52] LABS: MANUAL DIFF NO
[2016-12-25 04:56] LABS: CALCIUM 9.1 mg/dL (8.5-10.1); CREATININE 1.2 mg/dL (0.6-1.0)
[2016-12-25 04:59] LABS: POTASSIUM 2.8 mmol/L (3.5-5.1)
[2016-12-25 05:36] VITALS: BP 138/84
[2016-12-25 16:38] VITALS: BP 121/64
[2016-12-26 03:30] VITALS: BP 147/85
[2016-12-26 16:00] VITALS: BP 115/68
[2016-12-27 05:18] VITALS: BP 146/89
[2016-12-27 08:52] VITALS: BP 150/90
[2016-12-27 17:03] VITALS: BP 118/71
[2016-12-28 03:52] VITALS: BP 147/91
[2016-12-28 16:25] VITALS: BP 111/74
[2016-12-29 06:17] VITALS: BP 112/70
[2016-12-29 17:00] VITALS: BP 106/69
[2016-12-29 20:30] VITALS: BP 112/56
[2016-12-30 05:28] VITALS: BP 107/71
[2016-12-30 12:44] LABS: CALCIUM 9.6 mg/dL (8.5-10.1); CREATININE 1.5 mg/dL (0.6-1.0); MAGNESIUM 1.5 mg/dL (1.8-2.4); POTASSIUM 4.3 mmol/L (3.5-5.1)
[2016-12-30 16:00] VITALS: BP 100/67
[2016-12-30 20:35] VITALS: BP 95/63
[2016-12-30 21:40] VITALS: BP 107/56
[2016-12-31 09:30] VITALS: BP 92/64
[2016-12-31 19:42] VITALS: BP 93/55
[2017-01-01 04:05] LABS: ABSOLUTE NEUTROPHILS 8.4 thou/uL (1.4-8.2); BASOPHILS 0.3 % (0.0-2.0); EOSINOPHILS 1.9 % (0.0-3.0); HEMATOCRIT 33.5 % (37.0-47.0); HEMOGLOBIN 10.9 gm/dL (12.0-15.0); LYMPHOCYTES 17.4 % (24.0-44.0); MCHC 32.7 g/dL (28.0-37.0); MCV 94.7 fL (80.0-100.0); MONOCYTES 7.6 % (1.0-8.0); PLATELET COUNT 220 thou/uL (150-400); POLYS 72.8 % (36.0-66.0); RBC 3.53 mil/uL (4.20-5.00); RDW 16.3 % (10.5-14.5); WBC 11.6 thou/uL (4.0-11.0)
[2017-01-01 04:13] LABS: CALCIUM 9.6 mg/dL (8.5-10.1); CREATININE 1.5 mg/dL (0.6-1.0); MAGNESIUM 1.7 mg/dL (1.8-2.4)
[2017-01-01 04:19] LABS: MANUAL DIFF NO
[2017-01-01 07:35] VITALS: BP 105/64
[2017-01-01 20:21] VITALS: BP 94/55
[2017-01-01 21:30] VITALS: BP 112/56
[2017-01-02 09:00] VITALS: BP 113/63
[2017-01-02 21:05] VITALS: BP 87/53
[2017-01-03 06:24] LABS: ABSOLUTE NEUTROPHILS 4.6 thou/uL (1.4-8.2); BASOPHILS 0.6 % (0.0-2.0); EOSINOPHILS 3.2 % (0.0-3.0); HEMATOCRIT 31.4 % (37.0-47.0); HEMOGLOBIN 10.3 gm/dL (12.0-15.0); LYMPHOCYTES 23.4 % (24.0-44.0); MCHC 32.7 g/dL (28.0-37.0); MCV 94.6 fL (80.0-100.0); MONOCYTES 9.3 % (1.0-8.0); PLATELET COUNT 208 thou/uL (150-400); POLYS 63.5 % (36.0-66.0); RBC 3.32 mil/uL (4.20-5.00); RDW 16.1 % (10.5-14.5); WBC 7.2 thou/uL (4.0-11.0)
[2017-01-03 06:27] LABS: MANUAL DIFF NO
[2017-01-03 06:35] LABS: CALCIUM 9.2 mg/dL (8.5-10.1); CREATININE 1.6 mg/dL (0.6-1.0); MAGNESIUM 1.6 mg/dL (1.8-2.4); POTASSIUM 4.2 mmol/L (3.5-5.1)
[2017-01-03 08:30] VITALS: BP 102/66
[2017-01-03 19:47] VITALS: BP 104/68
[2017-01-04 19:38] VITALS: BP 100/61
[2017-01-05 06:25] LABS: CREATININE 1.6 mg/dL (0.6-1.0); POTASSIUM 4.3 mmol/L (3.5-5.1)
[2017-01-05 19:50] VITALS: BP 90/54
[2017-01-05 19:56] VITALS: BP 113/48
[2017-01-06 05:44] VITALS: BP 105/69
[2017-01-06 19:58] VITALS: BP 78/49
[2017-01-06 20:33] VITALS: BP 95/56
[2017-01-07 08:30] VITALS: BP 85/54
[2017-01-07 15:20] VITALS: BP 85/54
[2017-01-07 16:01] VITALS: BP 85/54
[2017-01-07 20:36] VITALS: BP 96/71
[2017-01-08 08:40] VITALS: BP 104/66
== END 2017-01-08 15:30 | disposition home health service (06) | DRG 947 ==
PROVIDERS: Family Medicine; Nurse Practitioner; Physical Medicine & Rehabilitation
DX: R53.81 Other malaise (principal); J96.02 Acute respiratory failure with hypercapnia; J96.01 Acute respiratory failure with hypoxia; N17.9 Acute kidney failure, unspecified; J44.1 Chronic obstructive pulmonary disease with (acute) exacerbation; N12 Tubulo-interstitial nephritis, not specified as acute or chronic; I95.9 Hypotension, unspecified; E83.42 Hypomagnesemia; F01.50 Vascular dementia, unspecified severity, without behavioral disturbance, psychotic disturbance, mood disturbance, and anxiety; M06.9 Rheumatoid arthritis, unspecified; E89.0 Postprocedural hypothyroidism; Z96.621 Presence of right artificial elbow joint; Z60.2 Problems related to living alone; N18.9 Chronic kidney disease, unspecified; I12.9 Hypertensive chronic kidney disease with stage 1 through stage 4 chronic kidney disease, or unspecified chronic kidney disease; K59.00 Constipation, unspecified; E87.6 Hypokalemia; R13.10 Dysphagia, unspecified; Z96.649 Presence of unspecified artificial hip joint; Z96.659 Presence of unspecified artificial knee joint; Z98.1 Arthrodesis status; Z90.49 Acquired absence of other specified parts of digestive tract; Z88.8 Allergy status to other drugs, medicaments and biological substances; Z91.018 Allergy to other foods
CPT/HCPCS: 10112

== ENCOUNTER → 2017-02-13 | Outpatient (CLI) | payer OTHER, BC | LOC: RAD 08:34 → SPEECH 10:46 | DX: R13.19 Other dysphagia (principal) ==

== ENCOUNTER → 2017-03-25 | Outpatient (CLI) | payer OTHER, BC ==
[~2017-03-25] VITALS: Ht 157.5 cm; Wt 77.1 kg
[~2017-03-25] MED LIST changes: +ALBUTEROL2.5 MG/31 INH; +VITAMIN D2000 UNIT PO; +ZANTAC 150MG T150 MG PO
== END | disposition home or self-care (01) ==
LOC: GI 08:10
DX: K22.2 Esophageal obstruction (principal); K44.9 Diaphragmatic hernia without obstruction or gangrene; I10 Essential (primary) hypertension; J44.9 Chronic obstructive pulmonary disease, unspecified; F32.89 Other specified depressive episodes; D64.9 Anemia, unspecified; M06.9 Rheumatoid arthritis, unspecified; Z96.643 Presence of artificial hip joint, bilateral; Z96.653 Presence of artificial knee joint, bilateral; Z96.662 Presence of left artificial ankle joint; Z96.661 Presence of right artificial ankle joint; Z90.49 Acquired absence of other specified parts of digestive tract; Z98.41 Cataract extraction status, right eye; Z98.42 Cataract extraction status, left eye; Z98.890 Other specified postprocedural states; Z79.899 Other long term (current) drug therapy
CPT/HCPCS: 62110; 62900

== ENCOUNTER 2018-07-02 12:02 | Inpatient (IN) | payer OTHER, BC ==
[~2018-07-02] VITALS: Ht 160 cm; Wt 77.1 kg
[~2018-07-02 12:02] MED LIST changes: +PRILOSEC 20 MG20 MG PO; -PRILOSEC20 MG PO
[2018-07-02 12:03] VITALS: BP 182/104
[2018-07-02 12:39] LABS: ABSOLUTE NEUTROPHILS 4.2 thou/uL (1.4-8.2); BASOPHILS 1.2 % (0.0-2.0); EOSINOPHILS 0.3 % (0.0-3.0); HEMATOCRIT 40.3 % (37.0-47.0); HEMOGLOBIN 13.1 gm/dL (12.0-15.0); LYMPHOCYTES 17.3 % (24.0-44.0); MCH 29.2 pg (26.0-34.0); MCHC 32.4 g/dL (28.0-37.0); MCV 90.2 fL (80.0-100.0); MONOCYTES 7.7 % (1.0-8.0); PLATELET COUNT 171 thou/uL (150-400); POLYS 73.5 % (36.0-66.0); RBC 4.47 mil/uL (4.20-5.00); RDW 15.8 % (10.5-14.5); WBC 5.8 thou/uL (4.0-11.0)
[2018-07-02 12:46] LABS: ANION GAP 11 mmol/L (7-16); BUN 24 mg/dL (7-18); CALCIUM 9.3 mg/dL (8.5-10.1); CHLORIDE 105 mmol/L (98-107); CO2 25 mmol/L (21-32); CREATININE 1.5 mg/dL (0.6-1.0); GLUCOSE 103 mg/dL (74-106); POTASSIUM 3.7 mmol/L (3.5-5.1); SODIUM 141 mmol/L (136-145)
[2018-07-02 12:55] LABS: ALBUMIN 3.3 g/dL (3.4-5.0); SGOT 44 U/L (15-37); SGPT 39 U/L (30-65); TOTAL BILIRUBIN 0.3 mg/dL (<0.1-1.0); TOTAL PROTEIN 7.8 g/dL (6.4-8.2); TROPONIN-I <0.06 ng/mL (<0.06)
[2018-07-02] MEDS ORDERED: ALBUTEROL2.5 MG/31 INH (12:57)
[2018-07-02] MEDS ORDERED: NORCO 10-325 T1 EACH PO (13:03)
[2018-07-02] MEDS ORDERED: ERGOCALCIF50000 UNIT PO (13:04)
[2018-07-02] MEDS ORDERED: ZANAFLEX4 MG PO (13:05)
[2018-07-02] MEDS ORDERED: DOXYCYCLINE 10100 MG PO (13:06)
[2018-07-02] MEDS ORDERED: TRELEGY ELLIPT1 EACH INH (13:07)
[2018-07-02] MEDS ORDERED: MYRBETRIQ50 MG PO (13:07)
[2018-07-02] MEDS ORDERED: REMICADE 1100 MG/VIA IV (13:09)
[2018-07-02 14:59] LABS: BE(vivo) -2.7 mmol/L (-2 to +3); HCO3 22.2 mmol/L (22.0-26.0); PCO2 39.1 mmHg (35.0-45.0); pH 7.372 (7.360-7.450); sO2 89.6 % (92.0-98.0)
[2018-07-02 16:09] VITALS: BP 160/88
[2018-07-02 16:47] VITALS: BP 144/92
--- NOTE | 2018-07-02 16:59 | NUR ---
[facility]ARM[facility]Y WILL TUBE CEFTRIAXONE TO INPT UNIT FOR ROOM 450
[2018-07-02 17:30] VITALS: BP 150/86
--- NOTE | 2018-07-02 18:18 | NUR ---
PT ARRIVED FROM ER 1730 WITH SOA, INFLUENZA, AND PNEUMONIA. ALERT X4 FROM HOME WITH CAREGIVER THAT ASSIST DURING DAY HOURS. 2L NC PRN USES AT HOME, NSR-ST ON TELE, NON-AMBULATING, BEDPAN FOR TOILETING PULL UPS AT HOME, DENIES PAIN, VSS, ABLE TO MAKE NEEDS KNOWN. ADMISSION HISTORY AND ASSESMENT COMPLETE. REQUIES SET UP FOR MEAL. FALL PRECATION IN PLACE. USES CALL LIGHT APPROPRIATELY
[2018-07-02 20:01] VITALS: BP 133/92
--- NOTE | 2018-07-03 03:15 | NUR ---
PT GIVEN NORCO FOR HEADACHE PT WAS ABLE TO SLEEP MOST OF THE NIGHT NO ISSUES OVERNIGHT.
[2018-07-03 04:53] VITALS: BP 132/72
[2018-07-03 07:25] VITALS: BP 133/85
--- NOTE | 2018-07-03 11:26 | EKG ---
[address] [place] [address] ELECTROCARDIOGRAM REPORT Name: RIK CASSIDY Room #: 450-P ADM IN M.R.#: [id number] ������������������ Admission: 07/02/18 ������������������ Attend Phys: Reggie De La Paz Discharge: ������������������ Date of : 33 Report #: [id number] ����������������������������������������������������������������� [id number] THIS REPORT FOR: //name// [facility] ED Test Date: 2018-07-02 Test Time: 12:18:13 Pat Name: RIK CASSIDY Department: Room: 450 Gender: F Reservations Manager: DELVIS : 1935 Requested By: Marilee Tafoya Order Number: [id number] MD: Crow Burton Measurements Intervals [place] Rate: 95 P: 39 NV: 155 QRS: -27 QRSD: 102 T: -5 QT: 369 QTc: 464 Interpretive Statements Sinus rhythm Leftward axis early transition Nonspecific ST-T wave changes Compared to ECG 12/19/2016 12:56:08 No significant changes Electronically Signed On 07-03-2018 11:26:16 SANITATION ENGINEER by Crow Burton [email or web address] ��������������������������������������������� <ELECTRONICALLY SIGNED> ���������������������������������������� By: Crow Burton MD ��������������������������������������������� 07/03/18 1126 1218 17 Crow Burton MD /EPI
[2018-07-03 15:56] VITALS: BP 129/90
[2018-07-03 20:13] VITALS: BP 127/67
[2018-07-04 02:01] VITALS: BP 128/70
[2018-07-04 04:22] VITALS: BP 148/84
--- NOTE | 2018-07-04 05:21 | NUR ---
Pt. rested quietly at intervals during the night when checked on during frequent rounds. Incontinent of urine and aga care given. Refused to be turned and repositioned. No c/o shortness of air. Bed alarm is on.
[2018-07-04 08:39] VITALS: BP 130/93
[2018-07-04 16:45] LABS: HEMATOCRIT 40.4 % (37.0-47.0); HEMOGLOBIN 13.2 gm/dL (12.0-15.0); MCH 29.7 pg (26.0-34.0); MCHC 32.6 g/dL (28.0-37.0); MCV 90.9 fL (80.0-100.0); RBC 4.44 mil/uL (4.20-5.00); RDW 15.7 % (10.5-14.5); WBC 5.1 thou/uL (4.0-11.0)
[2018-07-04 17:04] LABS: CALCIUM 9.3 mg/dL (8.5-10.1); CREATININE 1.3 mg/dL (0.6-1.0); POTASSIUM 4.5 mmol/L (3.5-5.1)
--- NOTE | 2018-07-04 17:55 | NUR ---
PT STABLE THROUGHOUT SHIFT. PT C/O HEADACHE, TREATED WITH MEDICATION. FAMILY AT BEDSIDE. PT RESTING COMFORTABLY.
[2018-07-04 19:03] VITALS: BP 134/80
--- NOTE | 2018-07-05 03:55 | NUR ---
Pt. rested quietly during the night when checked on during frequent rounds. She offers no c/o pain or shortness of air. Bed alarm is on.
[2018-07-05 04:04] VITALS: BP 142/83
[2018-07-05 04:52] LABS: HEMATOCRIT 39.5 % (37.0-47.0); HEMOGLOBIN 12.7 gm/dL (12.0-15.0); MCH 29.3 pg (26.0-34.0); MCHC 32.3 g/dL (28.0-37.0); MCV 90.8 fL (80.0-100.0); RBC 4.36 mil/uL (4.20-5.00); RDW 15.7 % (10.5-14.5); WBC 6.4 thou/uL (4.0-11.0)
[2018-07-05 05:08] LABS: CALCIUM 9.1 mg/dL (8.5-10.1); CREATININE 1.2 mg/dL (0.6-1.0); MAGNESIUM 2.1 mg/dL (1.8-2.4); POTASSIUM 4.1 mmol/L (3.5-5.1)
[2018-07-05 07:24] VITALS: BP 130/78
[2018-07-05 14:32] VITALS: BP 114/72
--- NOTE | 2018-07-05 17:29 | NUR ---
PT STABLE THROUGHOUT SHIFT. ANTICIPATE DISCHARGE TOMORROW. PT RESTING COMFORTABLY, WILL CONTINUE TO MONITOR.
[2018-07-05 19:46] VITALS: BP 162/102
[2018-07-05 20:52] VITALS: BP 135/84
[2018-07-06 02:45] VITALS: BP 147/75
--- NOTE | 2018-07-06 02:47 | NUR ---
Assumed care at 1845. Pt resting bed. Denies chest pain. Changed bedding. No identified needs at the moment. Call light within reach. Will continue to monitor.
[2018-07-06 07:43] VITALS: BP 124/79
[2018-07-06] MEDS ORDERED: PREDNISONE 10 M10 MG PO (08:59)
[2018-07-06] MEDS ORDERED: AZITHROMYCIN 2250 MG PO (08:59)
--- NOTE | 2018-07-06 09:49 | NUR ---
LATE ENTERY: CM MET WITH PT AT BEDSIDE FRIDAY. PT WAS ADMITTED RELATED TO SOA, INFLUENZA, COUGH, PNEUMONIA. CM REVIEWED CHART AND SPOKE WITH CARE TEAM. PT INDICATED SHE LIVES IN A FIRST FLOOR APARTMENT ALONE. 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 PT ALSO HAD A FWW AND A NEBULIZER FOR HOME USE. PT HAS CAREGIVERS 7 DAYS A WEEK FOR 4HRS PER DAY. PT HAD BEEN ON SERVICE WITH [facility] IN THE PAST. CM CALLED AND SPOKE WITH PT'S DTR AND SHE CONFIRMED THAT ABOVE. PLAN IS FOR PT TO RETURN HOME ONCE MEDICALLY STABLE. CM TO FOLLOW INDICATED WITH DC PLANNING.
--- NOTE | 2018-07-06 09:54 | NUR ---
PHYSICAIN INDICATED THAT PT IS MEDICALLY STABLE TO DISHCARGE HOME WIHT NO NEEDS THIS DAY. PT IS ON RA. NO OTHER CM INTERVENTION INDICATED AT THIS TIME. CASE CLOSED.
[2018-07-06 10:08] VITALS: BP 124/79
--- NOTE | 2018-07-06 11:52 | NUR ---
PT STABLE THIS MORNING. PT DISCHARGED HOME, LEFT UNIT VIA WHEELCHAIR TO PRIVATE VEHICLE.
== END 2018-07-06 11:57 | disposition home or self-care (01) | DRG 194 ==
LOC: ER 12:02 → 4W 14:01 → EROBS 14:01 → 4W 17:08
PROVIDERS: Internal Medicine; Physician Assistant; ADMIT Family Medicine
DX: J10.1 Influenza due to other identified influenza virus with other respiratory manifestations (principal); J44.1 Chronic obstructive pulmonary disease with (acute) exacerbation; E86.0 Dehydration; M62.84 Sarcopenia; M06.9 Rheumatoid arthritis, unspecified; E03.9 Hypothyroidism, unspecified; F32.9 Major depressive disorder, single episode, unspecified; F03.90 Unspecified dementia, unspecified severity, without behavioral disturbance, psychotic disturbance, mood disturbance, and anxiety; I10 Essential (primary) hypertension; R09.02 Hypoxemia; K21.9 Gastro-esophageal reflux disease without esophagitis; N32.81 Overactive bladder; N28.9 Disorder of kidney and ureter, unspecified; Z79.899 Other long term (current) drug therapy; Z79.51 Long term (current) use of inhaled steroids; Z79.1 Long term (current) use of non-steroidal anti-inflammatories (NSAID); Z88.6 Allergy status to analgesic agent; Z90.49 Acquired absence of other specified parts of digestive tract; Z88.8 Allergy status to other drugs, medicaments and biological substances
CPT/HCPCS: 10045

== ENCOUNTER → 2019-01-28 | Outpatient (CLI) | payer OTHER, BC ==
[~2019-01-28] MED LIST changes: +AZITHROMYCIN 2250 MG PO; +DOXYCYCLINE 10100 MG PO; +ERGOCALCIF50000 UNIT PO; +MYRBETRIQ50 MG PO; +REMICADE 1100 MG/VIA IV; +TRELEGY ELLIPT1 EACH INH; +ZANAFLEX4 MG PO
== END ==
LOC: RAD 10:33
DX: R06.00 Dyspnea, unspecified (principal); I11.9 Hypertensive heart disease without heart failure; M19.012 Primary osteoarthritis, left shoulder; M19.011 Primary osteoarthritis, right shoulder

== ENCOUNTER 2019-09-26 12:24 | Inpatient (IN) | payer OTHER, BC ==
[~2019-09-26] VITALS: Ht 160 cm; Wt 82.1 kg
[2019-09-26 12:36] VITALS: BP 98/75
--- NOTE | 2019-09-26 12:36 | NUR ---
COVID PRECAUTIONS AT ARRIVAL TO ROOM 1
[2019-09-26 13:18] LABS: ABSOLUTE NEUTROPHILS 3.3 thou/uL (1.4-8.2); BASOPHILS 0.6 % (0.0-2.0); EOSINOPHILS 1.6 % (0.0-3.0); HEMATOCRIT 41.4 % (37.0-47.0); HEMOGLOBIN 13.5 gm/dL (12.0-15.0); LYMPHOCYTES 19.1 % (24.0-44.0); MCH 30.3 pg (26.0-34.0); MCHC 32.5 g/dL (28.0-37.0); MONOCYTES 9.1 % (1.0-8.0); PLATELET COUNT 180 thou/uL (150-400); POLYS 69.6 % (36.0-66.0); RBC 4.46 mil/uL (4.20-5.00); WBC 4.7 thou/uL (4.0-11.0)
[2019-09-26 13:28] LABS: CALCIUM 9.1 mg/dL (8.5-10.1); CREATININE 1.5 mg/dL (0.6-1.0); POTASSIUM 3.6 mmol/L (3.5-5.1)
[2019-09-26 13:34] LABS: ALBUMIN 3.5 g/dL (3.4-5.0); TOTAL BILIRUBIN 0.3 mg/dL (<0.1-1.0); TOTAL PROTEIN 7.9 g/dL (6.4-8.2)
[2019-09-26] MEDS ORDERED: FUROSEMIDE 20 M20 MG PO (14:11)
[2019-09-26 14:18] LABS: URINE BILIRUBIN NEGATIVE (Negative); URINE BLOOD 1+ (Negative); URINE CLARITY SL CLOUDY; URINE COLOR YELLOW; URINE GLUCOSE-RANDOM* NEGATIVE (Negative); URINE KETONES NEGATIVE (Negative); URINE PROTEIN (DIPSTICK) TRACE (Negative); URINE UROBILINOGEN 0.2 E.U./dl (0.2-1.0)
[2019-09-26 14:19] LABS: URINE LEUKOCYTES-REFLEX 3+ (Negative); URINE NITRITE-REFLEX POSITIVE (Negative)
[2019-09-26] MEDS ORDERED: TRELEGY ELLIPT1 EACH INH (14:19)
[2019-09-26 14:34] LABS: BACTERIA-REFLEX >30 Many /HPF (None Seen); CASTS None Seen /LPF (None Seen); CRYSTALS None Seen /LPF (None Seen); SQUAMOUS 4-10 Moderate /LPF (0-3); URINE WBC-REFLEX >25 Many /HPF (0-5)
[2019-09-26 14:35] LABS: URINE RBC 0-2 Rare /HPF (0-2)
[2019-09-26 15:11] VITALS: BP 124/69
[2019-09-26 15:30] VITALS: BP 134/76
[2019-09-26 16:11] VITALS: BP 134/76
[2019-09-26 17:04] LABS: BE(vivo) -3.3 mmol/L (-2 to +3); HCO3 22.4 mmol/L (22.0-26.0); PCO2 42.6 mmHg (35.0-45.0); PO2 81.2 mmHg (80.0-100.0); pH 7.339 (7.360-7.450); sO2 95.3 % (92.0-98.0)
--- NOTE | 2019-09-26 19:26 | NUR ---
PT ADMITTED FROM ED FOR DIARRHEA AND SOB ABOUT 1600PM, PT IS A&O X3, PT IS ON ISOLATION FOR R/O COVID, PT STARTS IV ABX FOR UTI, ANMITTED ASSESSMENT HAS DONE, PT DOES NOT HAVE DIARRHEA , PAIN AND N/V AT THIS TIME.PT'S VS ARE STABLE , NO FEVER.
[2019-09-26 19:30] VITALS: BP 116/70
[2019-09-26 21:05] VITALS: BP 125/73
--- NOTE | 2019-09-27 03:52 | NUR ---
ALERT.FORGETFUL.DENIES PAIN.SOB WITH ACTIVITY.O2 2L NC.DENIES NEEDS AT THIS TIME.MONITOR SHOWS SR.POC CONTINUED.
[2019-09-27 04:10] VITALS: BP 115/67
[2019-09-27 06:23] LABS: HEMATOCRIT 38.9 % (37.0-47.0); HEMOGLOBIN 12.6 gm/dL (12.0-15.0); MCH 30.2 pg (26.0-34.0); MCHC 32.3 g/dL (28.0-37.0); MCV 93.6 fL (80.0-100.0); RBC 4.16 mil/uL (4.20-5.00); RDW 17.5 % (10.5-14.5); WBC 4.1 thou/uL (4.0-11.0)
[2019-09-27 06:34] LABS: CREATININE 1.4 mg/dL (0.6-1.0); MAGNESIUM 1.7 mg/dL (1.8-2.4); POTASSIUM 3.7 mmol/L (3.5-5.1)
[2019-09-27 06:41] LABS: CALCIUM 8.3 mg/dL (8.5-10.1)
[2019-09-27 08:00] VITALS: BP 117/72
[2019-09-27 12:30] VITALS: BP 126/76
--- NOTE | 2019-09-27 14:26 | EKG ---
[facility] [place] [address] ELECTROCARDIOGRAM REPORT Name: RIK CASSIDY Room #: 352-P ADM IN M.R.#: [id number] Admission: 09/26/19 Attend Phys: Cm Kaur MD Discharge: Date of : 33 Report #: [id number] THIS REPORT FOR: cc: Yayo Cody MD, Mark S. MD Park, Jin S. MD ~ THIS REPORT FOR: //name// [facility] ED Test Date: 2019-09-26 Test Time: 13:04:05 Pat Name: RIK CASSIDY Department: Room: [facility] Gender: F Tankman: : 1935 Requested By: Annita Calhoun Order Number: [id number] MD: Josh Bruce Measurements Intervals [place] Rate: 96 P: 32 WV: 165 QRS: -31 QRSD: 93 T: -11 QT: 371 QTc: 469 Interpretive Statements Sinus rhythm Abnormal R-wave progression, early transition Left ventricular hypertrophy Compared to ECG 07/02/2018 12:18:13 Left-axis deviation no longer present ST (T wave) deviation no longer present Electronically Signed On 09-27-2019 14:24:01 CDT by Josh Bruce [email or web address] <ELECTRONICALLY SIGNED> By: Josh Bruce MD 09/27/19 1424 1304 1304 Josh Bruce MD /EPI
--- NOTE | 2019-09-27 15:56 | NUR ---
PT WAS ADMITTED FROM ER AT 09/26/19 1600PM, PT IS A&OX3, PT IS CONTINUING ISOLATION FOR POSITIVE COVID, PT'S TEMP 99.2-99.6 F ( O ), PT IS ON O2 2L/MIN/NC TO KEEP O2SAT AT 95-98%, PT HAS STARTED IV ABX AT YESTODAY, PT DENIES PAIN AND SOB AT THIS TIME.
[2019-09-27 16:40] VITALS: BP 145/81
[2019-09-27 19:36] VITALS: BP 150/83
[2019-09-28 04:00] VITALS: BP 143/91
--- NOTE | 2019-09-28 05:55 | NUR ---
DENIES PAIN.SLEPT MOST OF THE NIGHT.MONITOR SHOWS SR.POC CONTINUED.
[2019-09-28 08:49] VITALS: BP 157/91
--- NOTE | 2019-09-28 08:59 | NUR ---
Received awake on bed. Due medications given as prescribed, able to swallow medications w/o difficulty. On mechanically altered chopped diet- assisted and encouraged in eating and drinking; swallow precations in place, pt kept upright. Assisted in ADLs. With O2 at 2lpm via nasal cannula. Maintained on isolation- R/O covid; protocol observed. With SL at R FA- C/D/I, flushing well; on IV antibiotics. With external forbes in place- output measured and recorded. Pt repositioned from time to time. A+O, may be forgetful- re-oriented from time to time. Falls bundle in place. SCDs in place. To continue monitoring patient.
--- NOTE | 2019-09-28 13:17 | NUR ---
INITIAL ASSESSMENT: Received consult for discharge planning. LEELEE reviewed chart and spoke with nursing and attending physician. Pt is in Enhanced Isolation. Pt's COVID-19 test on 09/25 was positive. LEELEE spoke with pt via phone. Introduced role of SW. Pt appears to be alert/orientated. Pt reports she lives at home in an apt at [facility] in [facility]. Prior to admission, pt was using crutches and a w/c. No steps. Pt was not on O2 prior to admission. Pt has PRN breathing treatments. Pt has used [facility] in the past for HH services. Pt has been to [facility] acute rehab. No prior use of DME. Pt's PCP is Dr. Darryl Singh. Pt states her plan is to return home when medically stable. Pt does not want to go to rehab/SNF. LEELEE spoke with pt's dtr, Mata, via phone. Mata is aware of pt's COVID-19 positive test result. Pt's dtr states that pt has had a cpap machine in the past, but pt was not able to put it on herself and wear it all night. Pt's dtr is unsure name of DME company for home cpap machine. Pt will need therapy evaluations when able to participate to assist with recommendations for discharge needs. LEELEE is following to assist as needed with discharge planning.
[2019-09-28 13:30] VITALS: BP 141/81
[2019-09-28 17:58] VITALS: BP 160/102
[2019-09-28 20:16] VITALS: BP 158/85
[2019-09-29 05:36] LABS: ABSOLUTE NEUTROPHILS 5.7 thou/uL (1.4-8.2); BASOPHILS 0.2 % (0.0-2.0); HEMATOCRIT 38.8 % (37.0-47.0); HEMOGLOBIN 12.6 gm/dL (12.0-15.0); LYMPHOCYTES 10.7 % (24.0-44.0); MCH 30.1 pg (26.0-34.0); MCHC 32.5 g/dL (28.0-37.0); MCV 92.4 fL (80.0-100.0); MONOCYTES 6.3 % (1.0-8.0); PLATELET COUNT 194 thou/uL (150-400); POLYS 82.8 % (36.0-66.0); RBC 4.19 mil/uL (4.20-5.00); RDW 17.3 % (10.5-14.5); WBC 6.9 thou/uL (4.0-11.0)
[2019-09-29 05:47] LABS: FIBRINOGEN 299.5 mg/dL (210-360); PROTIME 9.9 Seconds (9.3-11.4)
[2019-09-29 05:51] LABS: CALCIUM 8.7 mg/dL (8.5-10.1); CREATININE 1.2 mg/dL (0.6-1.0); MAGNESIUM 1.9 mg/dL (1.8-2.4); TOTAL BILIRUBIN 0.3 mg/dL (0.2-1.0)
[2019-09-29 07:37] VITALS: BP 131/73
--- NOTE | 2019-09-29 09:00 | NUR ---
TELE WITH NSR AND QT INTERVAL 0.39
[2019-09-29 12:42] VITALS: BP 157/106
--- NOTE | 2019-09-29 14:31 | NUR ---
SW reviewed chart and spoke with nursing and attending physician. Pt is progressing towards goals for discharge. Pt remains in Enhanced Isolation due to COVID-19. Therapy is working with pt to assist with recommendation for discharge planning. Plan is for pt to discharge home with HH when medically stable. SW is following to assist as needed with discharge planning.
--- NOTE | 2019-09-29 14:31 | NUR ---
SW reviewed chart and spoke with nursing and attending physician. Pt is progressing towards goals for discharge. Pt remains in Enhanced Isolation due to COVID-19. Therapy evals are on hold at this time. Plan is for pt to discharge home with HH when medically stable. LEELEE is following to assist as needed with discharge planning.
[2019-09-29 17:01] VITALS: BP 153/97
[2019-09-29 21:01] VITALS: BP 144/90
[2019-09-29 23:43] VITALS: BP 134/90; BP 144/85
[2019-09-30 03:33] VITALS: BP 153/94
--- NOTE | 2019-09-30 03:59 | NUR ---
Patient making slow progress towards outcome goals. Vital signs and rhythm stable. High fall risks, fall precautions in place. Calls out appropriately for needs. Mas x 1 getting out of bed or chair with gait belt and crutches. Incontinent of urine, external female catheter in place.
--- NOTE | 2019-09-30 05:43 | NUR ---
Patient started on Plaquenil 09/29/19. QT 0.31 and 0.37 tonight.
[2019-09-30 08:02] VITALS: BP 147/86
[2019-09-30 13:29] VITALS: BP 147/86
--- NOTE | 2019-09-30 13:36 | NUR ---
LEELEE reviewed chart and spoke with nursing and attending physician. Pt is progressing towards goals for discharge. Discharge home with HH is anticipated for tomorrow. Pt remains in Enhanced Isolation due to COVID-19. Repeat test to be ordered. LEELEE called pt in room. No answer. LEELEE spoke with pt's dtr, Mata, via phone to provide update and notify of anticipated discharge plan. Options for HH providers discussed with pt's dtr. No preference voiced. LEELEE confirmed pt's home address and phone number. LEELEE faxed referral to [facility] , who does accept pt's insurance. Spoke with Odalis in intake to notify of new referral. Pt will need rest/exercise oximetry prior to discharge to determine if pt needs home O2. Pt was 88% on RA earlier today. Pt was not on O2 prior to admission. Pt's family will be able to provide transportation home. LEELEE is following to assist as needed with discharge planning.
[2019-09-30 15:11] VITALS: BP 158/96
--- NOTE | 2019-09-30 17:38 | NUR ---
ON ROOM AIR. AFEBRILE. VITALS STABLE. RESWABBED TODAY. VOICING NO COMPLAINTS. WANTS TO GO HOME. NO OTHER CHANGES TO REPORT.
--- NOTE | 2019-10-01 06:14 | NUR ---
2ND COVID RESULTED WITH POSITIVE. PT VSS, TELE SHOWS NSR 60-80'S. O2 IS AT 2L VIA NC. PT IS 2X ASSIST. EXTERNAL CATH IN PLACE. PT REQUESTED TYLENOL FOR HEADACHE. HOURLY ROUNDING AND CALL LIGHT WITHIN REACH.
[2019-10-01 08:12] VITALS: BP 152/97
[2019-10-01] MEDS ORDERED: MAGNESIUM400 MG PO (12:42)
[2019-10-01] MEDS ORDERED: ZINC SULFATE 2220 MG PO (12:42)
[2019-10-01] MEDS ORDERED: PREDNISONE 5 MG5 MG PO (12:42)
[2019-10-01] MEDS ORDERED: CARDIZEM CD 18180 M3 PO (12:42)
[2019-10-01] MEDS ORDERED: PLAQUENIL200 MG PO (12:42)
[2019-10-01] MEDS ORDERED: ACETAMINOPHEN325 M1 PO (12:42)
[2019-10-01] MEDS ORDERED: CEFDINIR300 MG PO (12:42)
[2019-10-01 13:16] VITALS: BP 147/86
--- NOTE | 2019-10-01 13:52 | NUR ---
DISCHARGE NOTE: LEELEE reviewed chart and spoke with nursing and attending physician. Pt is medically stable for discharge home today with HH services. Pt remains in Enhanced Isolation due to COVID-19. Pt's repeat test is positive for COVID. Rest/exercise completed today. Pt does qualify for home O2. LEELEE spoke with pt's dtr, Mata, via phone to provide update and discuss discharge plan. Pt's family is agreeable with pt returning home with HH and Home O2. LEELEE discussed that [facility] will be providing HH services. LEELEE discussed options for DME companies for home O2. No preference voiced. LEELEE faxed pt's clinical info/demographic info to [facility] and notified liaison of new referral. Will need script from physician for home O2. Contact info for and [facility] in pt's discharge summary. Pt's family to be notified by nursing when pt is ready for discharge. Will need portable O2 tank delivered prior to pt's discharge. LEELEE is following to assist as needed with discharge planning. [facility]
[2019-10-01] MEDS ORDERED: HOME OXYGEN (15:03)
== END 2019-10-01 16:08 | disposition home health service (06) | DRG 871 ==
LOC: ER 12:24 → 3W 14:53 → EROBS 14:53 → 3W 16:12
PROVIDERS: Emergency Medicine; Nurse Practitioner Family; Specialist; ADMIT Internal Medicine
DX: A41.9 Sepsis, unspecified organism (principal); J96.21 Acute and chronic respiratory failure with hypoxia; U07.1 COVID-19; J12.89 Other viral pneumonia; J44.1 Chronic obstructive pulmonary disease with (acute) exacerbation; J98.11 Atelectasis; M06.9 Rheumatoid arthritis, unspecified; I10 Essential (primary) hypertension; Z96.621 Presence of right artificial elbow joint; K21.9 Gastro-esophageal reflux disease without esophagitis; F03.90 Unspecified dementia, unspecified severity, without behavioral disturbance, psychotic disturbance, mood disturbance, and anxiety; F32.9 Major depressive disorder, single episode, unspecified; E89.0 Postprocedural hypothyroidism; D63.8 Anemia in other chronic diseases classified elsewhere; B96.20 Unspecified Escherichia coli [E. coli] as the cause of diseases classified elsewhere; N30.90 Cystitis, unspecified without hematuria; E66.9 Obesity, unspecified; Z68.32 Body mass index [BMI] 32.0-32.9, adult; Z90.49 Acquired absence of other specified parts of digestive tract; Z98.42 Cataract extraction status, left eye; Z98.41 Cataract extraction status, right eye; Z88.8 Allergy status to other drugs, medicaments and biological substances; Z91.19 Patient's noncompliance with other medical treatment and regimen; Z79.899 Other long term (current) drug therapy
CPT/HCPCS: 10879

== ENCOUNTER 2021-01-01 11:57 | Emergency (ER) | payer OTHER, BC ==
[~2021-01-01] VITALS: Ht 160 cm; Wt 78.0 kg
[~2021-01-01 11:57] MED LIST changes: +CARDIZEM CD 18180 M3 PO; +CEFDINIR300 MG PO; +FUROSEMIDE 20 M20 MG PO; +HOME OXYGEN; +MAGNESIUM400 MG PO; +PLAQUENIL200 MG PO; +PREDNISONE 5 MG5 MG PO; +ZINC SULFATE 2220 MG PO
[2021-01-01 12:57] LABS: ABSOLUTE NEUTROPHILS 3.3 thou/uL (1.4-8.2); BASOPHILS 1.2 % (0.0-2.0); EOSINOPHILS 6.8 % (0.0-3.0); HEMATOCRIT 36.9 % (37.0-47.0); HEMOGLOBIN 11.7 gm/dL (12.0-15.0); LYMPHOCYTES 30.3 % (24.0-44.0); MCH 29.2 pg (26.0-34.0); MCHC 31.8 g/dL (28.0-37.0); MCV 91.8 fL (80.0-100.0); MONOCYTES 4.5 % (1.0-8.0); PLATELET COUNT 288 thou/uL (150-400); POLYS 57.2 % (36.0-66.0); RBC 4.01 mil/uL (4.20-5.00); RDW 15.4 % (10.5-14.5); WBC 5.8 thou/uL (4.0-11.0)
[2021-01-01 13:03] LABS: CALCIUM 8.9 mg/dL (8.5-10.1); CREATININE 1.5 mg/dL (0.6-1.0); POTASSIUM 3.5 mmol/L (3.5-5.1)
[2021-01-01 13:10] LABS: ALBUMIN 2.8 g/dL (3.4-5.0); TOTAL BILIRUBIN 0.2 mg/dL (0.2-1.0)
[2021-01-01] MEDS ORDERED: MOBIC7.5 MG PO (14:18)
[2021-01-01 14:40] VITALS: BP 165/95
== END 2021-01-01 14:40 | disposition home or self-care (01) ==
LOC: ER 11:57
PROVIDERS: Nurse Practitioner
DX: R07.81 Pleurodynia (principal); M19.90 Unspecified osteoarthritis, unspecified site; J44.9 Chronic obstructive pulmonary disease, unspecified; I10 Essential (primary) hypertension; K21.9 Gastro-esophageal reflux disease without esophagitis; F32.9 Major depressive disorder, single episode, unspecified; Z90.49 Acquired absence of other specified parts of digestive tract; Z90.89 Acquired absence of other organs; Z79.899 Other long term (current) drug therapy; Z91.02 Food additives allergy status; W05.1XXA Fall from non-moving nonmotorized scooter, initial encounter; Y93.89 Activity, other specified; Y92.89 Other specified places as the place of occurrence of the external cause; Y99.8 Other external cause status

== ENCOUNTER → 2021-01-03 | Outpatient (CLI) | payer OTHER, BC ==
[~2021-01-03] MED LIST changes: +MOBIC7.5 MG PO
== END ==
LOC: RAD 14:35
PROVIDERS: ATTEND Nurse Practitioner
DX: M19.012 Primary osteoarthritis, left shoulder (principal); R07.9 Chest pain, unspecified; M19.011 Primary osteoarthritis, right shoulder; R06.02 Shortness of breath; R07.81 Pleurodynia; Z90.49 Acquired absence of other specified parts of digestive tract

== ENCOUNTER → 2021-04-09 | Outpatient (CLI) | payer OTHER, BC | LOC: RAD 14:20 | PROVIDERS: ATTEND Nurse Practitioner | DX: J98.11 Atelectasis (principal); R91.8 Other nonspecific abnormal finding of lung field; M19.012 Primary osteoarthritis, left shoulder; M19.011 Primary osteoarthritis, right shoulder; R05.9 Cough, unspecified ==

== ENCOUNTER → 2021-04-30 | Outpatient (CLI) | payer OTHER, BC | LOC: RAD 11:40 | PROVIDERS: ATTEND Nurse Practitioner | DX: J84.10 Pulmonary fibrosis, unspecified (principal); R05.9 Cough, unspecified; J18.9 Pneumonia, unspecified organism ==

== ENCOUNTER → 2021-06-29 | Outpatient (CLI) | payer OTHER, BC | LOC: CAT 08:58 | PROVIDERS: ATTEND Internal Medicine | DX: J47.9 Bronchiectasis, uncomplicated (principal); J98.4 Other disorders of lung; J98.6 Disorders of diaphragm ==